=== PATIENT | female | born 1970 | race Hispanic/Latino ===

== ENCOUNTER 2021-04-18 11:30 | Emergency (ER) | payer OTHER ==
[2021-04-18] MEDS ORDERED: HYDROcodone/ACETAMINOPHEN 5-325 MG TAB PO ONE (11:53)
[2021-04-18] MEDS ORDERED: KETOROLAC 30 MG/1 ML INJ IM ONE (11:53)
--- NOTE | 2021-04-18 11:54 | Emergency Department Report ---
ED Back Pain/Injury HPI - General Chief Complaint: Back Pain/Injury Stated Complaint: LOWER BACK PAIN Time Seen by Provider: 04/18/21 11:38 Source: patient Limitations: No Limitations - Related Data Previous Rx's Medication Instructions Recorded Last Taken Type Ketorolac [Toradol] 10 mg PO Q6H PRN #20 tablet 04/18/21 Unknown Rx Lidocaine [Lidoderm] 1 each TP BID #1 box 04/18/21 Unknown Rx methOCARBAMOL [Robaxin TAB] 0 mg PO TID #30 tablet 04/18/21 Unknown Rx Allergies Allergy/AdvReac Type Severity Reaction Status Date / Time No Known Allergies Allergy Verified 04/18/21 11:35 ED Review of Systems ROS: Stated complaint: LOWER BACK PAIN Other details as noted in HPI ED Past Medical Hx - Medications Home Medications: Home Medications Medication Instructions Recorded Confirmed Last Taken Type Ketorolac [Toradol] 10 mg PO Q6H PRN #20 tablet 04/18/21 Unknown Rx Lidocaine [Lidoderm] 1 each TP BID #1 box 04/18/21 Unknown Rx methOCARBAMOL [Robaxin TAB] 0 mg PO TID #30 tablet 04/18/21 Unknown Rx ED Physical Exam - General Limitations: No Limitations ED Course Vital Signs 04/18/21 04/18/21 04/18/21 11:34 12:48 13:13 Temperature 97.8 F 97.6 F Pulse Rate 87 73 Respiratory 16 18 16 Rate Blood Pressure 173/97 132/74 [Left] O2 Sat by Pulse 99 99 Oximetry ED Medical Decision Making - Radiology Data Radiology results: report reviewed, image reviewed Mild degenerative changes in the lumbar spine but no acute abnormalities. Disc spaces appear normal. - Medical Decision Making 50-year-old female presents to the emergency department with lower back pain. She has had lower back pain before. She denies any recent injuries. There are no radicular symptoms. Her exam shows a negative straight leg raise, normal EHLs, imaging and urine are benign. I have treated her here with [place] and Toradol and will send her home with prescriptions for Toradol, Robaxin, and Lidoderm patches. I will refer her to the back specialist. Return precautions were given, especially for cauda equina symptoms. Critical care attestation.: If time is entered above; I have spent that time in minutes in the direct care of this critically ill patient, excluding procedure time. ED Disposition Clinical Impression: Acute low back pain Qualifiers: Back pain laterality: midline Sciatica presence: without sciatica Qualified Code(s): M54.50 - Low back pain, unspecified Disposition: 01 HOME / SELF CARE / HOMELESS Is pt being admited?: No Does the pt Need Aspirin: No Condition: Stable Instructions: Acute Back Pain, Adult Prescriptions: Lidocaine [Lidoderm] 1 each TP BID #1 box methOCARBAMOL [Robaxin TAB] 0 mg PO TID #30 tablet Ketorolac [Toradol] 10 mg PO Q6H PRN #20 tablet PRN Reason: Pain Referrals: MICHAELA RUFF II, MD [Staff Physician] - 3-5 Days PRIMARY CARE, [Primary Care Provider] - 3-5 Days
--- NOTE | 2021-04-18 13:10 | XRay Report ---
Lumbar spine, 3 views HISTORY: Pain COMPARISON: FINDINGS: Lumbar spinal alignment is preserved. There is moderate lower lumbar facet arthropathy. Mil d disc space height loss at L4-L5 and L5-S1. Vertebral body heights are intact. No evidence of fractu re. IMPRESSION: Mild/moderate lower lumbar spondylosis, as above. No acute process. Signer Name: Toño Castillo MD Signed: 04/18/2021 1:05 PM Workstation Name: [id number]
[2021-04-18 13:15] VITALS: BP 132/74
[2021-04-18 13:15] LABS: Bilirubin,Urine NEG (Negative); Blood,Urine NEG (Negative); Color,Urine Yellow (Yellow); Protein,Urine <15 mg/dL mg/dL (Negative); Urobilinogen,Urine < 2.0 mg/dL (<2.0); WBC,Urine < 1.0 /HPF (0.0-6.0)
== END 2021-04-18 14:46 | disposition home or self-care (01) ==
LOC: EDBD → ED 11:30
DX: M54.50 Low back pain, unspecified (principal)
CPT/HCPCS: 72100; 81001; 96372; 99283; J1885